=== PATIENT | male | born 1965 | race Two or more races ===

== ENCOUNTER 2021-08-11 13:35 | Inpatient (IN) | payer OTHER ==
[~2021-08-11] VITALS: Ht 182.9 cm; Wt 95.3 kg
[2021-08-11 14:16] LABS: Basophils # (auto) 0 10 ^3/uL (0-0.2); Basophils % (auto) 0.1 % (0.0-2.0); Eosinophils # (auto) 0 10 ^3/uL (0-0.8); Hematocrit 46.9 % (41.0-53.0); Hemoglobin 15.9 g/dL (13.5-17.5); Lymphocytes # (auto) 1.2 10 ^3/uL (0.4-5.4); Lymphocytes % (auto) 8.6 % (10.0-50.0); Mean Corpuscular Hemoglobin 32.9 pg (28.0-32.0); Mean Corpuscular Hgb Conc. 33.9 g/dL (32.0-36.0); Monocytes # (auto) 0.7 10 ^3/uL (0-1.3); Monocytes % (auto) 5.4 % (0.0-12.0); Neutrophils # (auto) 11.8 10 ^3/uL (1.6-8.6); Neutrophils % (auto) 85.9 % (37.0-80.0); Nucleated Red Blood Cells % 0.1 %; Red Blood Cells 4.83 10^6/uL (4.5-5.90); Red Cell Distribution Width 13.6 % (11.8-14.3); White Blood Cell 13.7 10^3/uL (4.4-10.8)
[2021-08-11 14:22] LABS: Albumin 3.7 g/dL (3.4-5.0)
[2021-08-11] MEDS ORDERED: ALBUTEROL SULF 2.5 MG/0.5ML(0.5%) NEB SOLN NEB ONE (14:30)
[2021-08-11] MEDS ORDERED: IPRATROPIUM BROM 0.5 MG/2.5ML INH SOL NEB ONE (14:30)
[2021-08-11 14:32] LABS: BUN/Creatinine Ratio 19.4; Bilirubin, Total 1.4 mg/dL (0.2-1.0); Total Protein 7.8 g/dL (6.4-8.2)
[2021-08-11] MEDS ORDERED: IOHEXOL 350 MG/ML 100ML IJ ONE (20:41)
[2021-08-12] MEDS ORDERED: HYDROcodone-ACET 5/325MG TAB PO PRN (00:30)
[2021-08-12] MEDS ORDERED: hydrALAZINE HCL 10 MG TAB PO PRN (00:30)
[2021-08-12] MEDS ORDERED: ALBUTEROL SULF 2.5 MG/0.5ML(0.5%) NEB SOLN NEB PRN (00:30)
[2021-08-12] MEDS ORDERED: ACETAMINOPHEN 325 MG TAB PO PRN (00:30)
[2021-08-12] MEDS ORDERED: MORPHINE SULFATE INJECTION 2 MG/ML SYRG IV PRN (00:30)
[2021-08-12] MEDS ORDERED: ONDANSETRON HCL 4 MG/2 ML VIAL IV PRN (00:30)
[2021-08-12] MEDS ORDERED: ALBUTEROL SULF HFA 90MCG INH 200DOSE IN SCH (06:00)
[2021-08-12] MEDS ORDERED: DexAMETHasone SOD PHOS 10MG/1ML VIAL INJ IV SCH (10:00)
[2021-08-12] MEDS ORDERED: DOXYCYCLINE 100MG/250ML 250 ML IV SCH (10:00)
[2021-08-12] MEDS: DOXYCYCLINE 100MG/250ML 250 ML IV SCH ×2 (10:28→23:23)
[2021-08-12] MEDS: ASCORBIC ACID 500 MG TAB PO SCH (10:29)
[2021-08-12] MEDS: FAMOTIDINE 20 MG TAB PO SCH (10:29)
[2021-08-12] MEDS: CHOLECALCIFEROL (VITD3) 2,000 UNIT CAP/TAB PO SCH (10:29)
[2021-08-12 12:25] LABS: Urine Bacteria NONE SEEN /hpf (None Seen); Urine Blood Negative /uL (Negative); Urine Mucus FEW (None Seen); Urine Specific Gravity 1.045 (1.001-1.035); Urine Sperm PRESENT /hpf (None Seen); Urine WBC 1 /hpf (0 - 3)
[2021-08-12 17:44] VITALS: BP 115/80
[2021-08-12] MEDS ORDERED: SERT100T PO (18:54)
[2021-08-12 22:00] VITALS: BP 121/72
[2021-08-13 05:00] VITALS: BP 117/62
[2021-08-13 07:03] LABS: Basophils # (auto) 0 10 ^3/uL (0-0.2); Eosinophils # (auto) 0 10 ^3/uL (0-0.8); Eosinophils % (auto) 0.4 % (0.0-7.0); Hematocrit 42.9 % (41.0-53.0); Hemoglobin 14.5 g/dL (13.5-17.5); Lymphocytes # (auto) 1.9 10 ^3/uL (0.4-5.4); Mean Corpuscular Hgb Conc. 33.9 g/dL (32.0-36.0); Mean Corpuscular Volume 97.2 fL (80.0-100.0); Monocytes # (auto) 0.7 10 ^3/uL (0-1.3); Monocytes % (auto) 6.5 % (0.0-12.0); Neutrophils # (auto) 7.5 10 ^3/uL (1.6-8.6); Neutrophils % (auto) 74.1 % (37.0-80.0); Nucleated Red Blood Cells % 0.1 %; Red Blood Cells 4.41 10^6/uL (4.5-5.90); Red Cell Distribution Width 13.5 % (11.8-14.3); White Blood Cell 10.1 10^3/uL (4.4-10.8)
[2021-08-13 07:18] LABS: Calcium 8.8 mg/dL (8.5-10.1); Potassium 4.2 mmol/L (3.5-5.1)
[2021-08-13 07:28] LABS: BUN/Creatinine Ratio 32.1; CRP High Sensitivity 10.1 mg/dL (< 0.3)
[2021-08-13 09:00] VITALS: BP 123/70
[2021-08-13] MEDS: ASCORBIC ACID 500 MG TAB PO SCH (09:40)
[2021-08-13] MEDS: FAMOTIDINE 20 MG TAB PO SCH (09:40)
[2021-08-13] MEDS: DOXYCYCLINE 100MG/250ML 250 ML IV SCH ×2 (09:40→22:34)
[2021-08-13] MEDS: CHOLECALCIFEROL (VITD3) 2,000 UNIT CAP/TAB PO SCH (09:41)
[2021-08-13 13:00] VITALS: BP 110/72
[2021-08-13] MEDS ORDERED: DOXY-332 PO (16:04)
[2021-08-13] MEDS ORDERED: ALBUAER3 IN (16:04)
[2021-08-13 17:00] VITALS: BP 141/81
[2021-08-13 22:00] VITALS: BP 120/62
[2021-08-14 05:00] VITALS: BP 125/67
[2021-08-14] MEDS: DOXYCYCLINE 100MG/250ML 250 ML IV SCH (08:30)
[2021-08-14] MEDS: FAMOTIDINE 20 MG TAB PO SCH (08:30)
[2021-08-14] MEDS: ASCORBIC ACID 500 MG TAB PO SCH (08:30)
[2021-08-14] MEDS: CHOLECALCIFEROL (VITD3) 2,000 UNIT CAP/TAB PO SCH (08:31)
[2021-08-14 09:00] VITALS: BP 96/66
[2021-08-14 09:26] VITALS: BP 96/66
== END 2021-08-14 10:15 | disposition home health service (06) | DRG 189 ==
LOC: ER 13:35 → TELE 08-12 00:55 → TELE-WESTW 08-12 17:36
PROVIDERS: ADMIT Nurse Practitioner Family; ATTEND Nurse Practitioner Family
DX: J96.01 Acute respiratory failure with hypoxia (principal); J18.9 Pneumonia, unspecified organism; J98.11 Atelectasis; Z20.822 Contact with and (suspected) exposure to COVID-19; F17.210 Nicotine dependence, cigarettes, uncomplicated; R79.89 Other specified abnormal findings of blood chemistry; F32.9 Major depressive disorder, single episode, unspecified
CPT/HCPCS: 36415; 36600; 71045; 71275; 80048; 80053; 81001; 82728; 82805; 83880; 84484; 85025; 85379; 86141; 87426; 93005; 93970; 94640; 96365; 96375; 99291; G0378; J1100; J3490